=== PATIENT | male | born 1990 | race Caucasian/White ===

== ENCOUNTER 2016-11-09 15:40 | Emergency (ER) | payer SELFPAY ==
[~2016-11-09] VITALS: Ht 190.5 cm; Wt 90.0 kg
[2016-11-09 15:54] VITALS: BP 137/78; PULSE 87; RESP 16; TEMP 99; O2SAT 97
--- NOTE | 2016-11-09 15:55 | PD ---
Physical Exam Time Seen by Provider: 15:54 Narrative 26 y/o male here for evaluation of an area os skin redness on the medial R ankle for 2 weeks. Initially pruritic/painful, now somewhat subsided. Seen at triage desk. Awaiting bed placement. Data Data Last Documented VS Vital Signs Date Time Temp Pulse Resp B/P Pulse Ox O2 Delivery O2 Flow Rate FiO2 11/09/16 15:54 99.0 87 16 137/78 97 MDM Medical Record Reviewed: Yes Supervised Visit with APARNA: No Nii Schmidt Nov 09, 2016 15:55
--- NOTE | 2016-11-09 16:18 | PD ---
HPI Chief Complaint: Skin Problem Time Seen by Provider: 16:05 Travel History International Travel<30 days: No Contact w/Intl Traveler<30days: No Traveled to known affect area: No History of Present Illness HPI 26-year-old male presents the right Department with rash to the right inner ankle which she says it been present for over 2 weeks. Patient states it was more angry beginning treated with azithromycin with improvement. Now he has ongoing mild flaky demarcated erythematous region. He states is that she occasionally. He denies any specific pain or other symptoms. He is allergic to cephalosporins and penicillin. [facility] Social History Alcohol Use: Yes Tobacco Use: No Substance Use: No Allergies-Medications (Allergen,Severity, Reaction): Coded Allergies: Cephalosporins (Verified Allergy, Unknown, 11/09/16) Penicillin (Verified Allergy, Unknown, , 11/09/16) Review of Systems Except as stated in HPI: all other systems reviewed are Neg General / Constitutional: No: Fever Eyes: No: Visual changes HENT: No: Headaches Cardiovascular: No: Chest Pain or Discomfort Respiratory: No: Shortness of Breath Gastrointestinal: No: Abdominal Pain Genitourinary: No: Dysuria Musculoskeletal: No: Pain Skin: Positive Rash, Positive Itching Neurologic: No: Weakness Psychiatric: No: Depression Endocrine: No: Polydipsia Hematologic/Lymphatic: No: Easy Bruising Physical Exam Narrative GENERAL: Patient is in no acute distress. SKIN: Warm and dry. Normal color. Normal turgor. Patient has well demarcated rash consisting of flaky outline and smooth inner area on the right ankle measuring approximate 5 cm x 3 cm. There is no tenderness or excessive force. No signs of cellulitis or abscess. No streaking. It appears consistent with ringworm. HEAD: Atraumatic. Normocephalic. EYES: Pupils equal and round. No scleral icterus. No injection or drainage. ENT: No nasal bleeding or discharge. Mucous membranes pink and moist. Pharynx is clear. NECK: Trachea midline. Supple nontender. CARDIOVASCULAR: Regular rate and rhythm. RESPIRATORY: No accessory muscle use. Clear to auscultation. Breath sounds equal bilaterally. MUSCULOSKELETAL: Extremities without clubbing, cyanosis, or edema. No obvious deformities. NEUROLOGICAL: Awake and alert. No obvious cranial nerve deficits. Motor grossly within normal limits. Five out of 5 muscle strength in the arms and legs. Normal speech. PSYCHIATRIC: Appropriate mood and affect; insight and judgment normal. Data Data Last Documented VS Vital Signs Date Time Temp Pulse Resp B/P Pulse Ox O2 Delivery O2 Flow Rate FiO2 11/09/16 15:54 99.0 87 16 137/78 97 MDM Medical Decision Making Medical Screen Exam Complete: Yes Emergency Medical Condition: Yes Differential Diagnosis Dermatophytosis. Cellulitis. MRSA. Ringworm. Narrative Course Patient is felt to have a dermatophytosis to the right ankle. Patient is treated with Diflucan 150 mg by mouth weekly 2 weeks. #2. Patient is given a prescription for Lotrisone ointment to be applied to 3 times daily for 2 weeks. Patient should follow up with symptoms do not clear or worsen. Diagnosis Primary Impression: Ringworm of foot Qualified Code: B35.3 - Tinea pedis of right foot Referrals: Primary Care Physician Patient Instructions: General Instructions, Tinea Corporis (ED) Additional Instructions: Patient is felt to have a dermatophytosis to the right ankle. Patient is treated with Diflucan 150 mg by mouth weekly 2 weeks. #2. Patient is given a prescription for Lotrisone ointment to be applied to 3 times daily for 2 weeks. Patient should follow up with symptoms do not clear or worsen. Med/Other Pt SpecificInfo: Prescription(s) given Disposition: 01 DISCHARGE HOME Condition: Stable Graham Cao Nov 09, 2016 16:18
[2016-11-09] MEDS ORDERED: DIFL150T PO (16:19)
[2016-11-09] MEDS ORDERED: LOTR15T TOPICAL (16:19)
--- NOTE | 2016-11-11 07:19 | PD ---
Data Data Last Documented VS Vital Signs Date Time Temp Pulse Resp B/P Pulse Ox O2 Delivery O2 Flow Rate FiO2 11/09/16 15:54 99.0 87 16 137/78 97 MDM Supervised Visit with APARNA: Yes Narrative Course I, Dr. Cormier, have reviewed the advance practice practitioner's documentation and am in agreement, met with the patient face to face, made the diagnosis, and the medical decision making was done by me. *My assessment and Findings: Was asked by the PA to see the patient as he is requesting to see a physician. Patient is complaining chiefly of a rash on his right ankle. The rash has a raised outer H with pallor and central clearing highly consistent with ringworm. Patient states he has been having generalized body aches especially in his right knee and is concerned that the infection might spread to his blood. He appears well and nontoxic. He is not immunocompromised review of systems does not have HIV diabetes or any other immunologic disorder. The patient was counseled closely for signs symptoms that should prompt return to the ER in symptomatic management at home. Discussed treatment of any satellite lesions that develop. Discussed need for follow-up with his primary care physician of the [facility]. He is stable for discharge at this time. Diagnosis Primary Impression: Ringworm of foot Qualified Code: B35.3 - Tinea pedis of right foot Referrals: Primary Care Physician Patient Instructions: General Instructions, Tinea Corporis (ED) Departure Forms: Tests/Procedures Additional Instruction: Patient is felt to have a dermatophytosis to the right ankle. Patient is treated with Diflucan 150 mg by mouth weekly 2 weeks. #2. Patient is given a prescription for Lotrisone ointment to be applied to 3 times daily for 2 weeks. Patient should follow up with symptoms do not clear or worsen. Scripts Betamethasone-Clotrimazole Topical (Lotrisone Topical)1-0.05% Cream1 Applic TOPICAL BID #45 GM Ref 0 Prov:Bryon Cormier MD 11/09/16 Fluconazole (Diflucan)150 Mg [id number] Mg PO WEEKLY #2 TAB Ref 1 Prov:Bryon Cormier MD 11/09/16 Disposition: 01 DISCHARGE HOME Condition: Stable Bryon Cormier MD Nov 11, 2016 07:19
== END 2016-11-09 17:34 | disposition home or self-care (01) ==
LOC: NEPK 15:40
DX: B35.3 Tinea pedis (principal)
CPT/HCPCS: 99284